=== PATIENT | female | born 1945 | race Caucasian/White ===

== ENCOUNTER → 2017-01-07 | Outpatient (REF) | payer MEDICARE, OTHER ==
[2017-01-08 00:38] LABS: MICROSCOPIC EXAM PERFORMED
[2017-01-08 00:39] LABS: CALCIUM OXALATE CRYSTALS,URINE MOD AMOUNT /hpf; HYALINE CAST, URINE NONE SEEN /lpf (0-1); SQUAMOUS EPITHELIAL CELL URINE MOD AMOUNT /hpf (SMALL AMT); WBC, URINE NONE SEEN /hpf (0-3)
[2017-01-08 00:40] LABS: BACTERIA, URINE NONE SEEN
== END ==
LOC: M LAB REF 16:30
PROVIDERS: ATTEND Nurse Practitioner Family
DX: R31.9 Hematuria, unspecified (principal)

== ENCOUNTER → 2020-04-19 | Outpatient (CLI) | payer MEDICARE, OTHER ==
[~2020-04-19] MED LIST: ALBU83IN INH; ALLE1DRO2 OP; CALC500C15 PO; CALCTAB89 PO; CETI10CH PO; EPIP0.3I2 IM; FLON1SPR; MELA10CA2 PO; MULTCAP PO; OMEP-218 PO; ROSU10TA6 PO; VAGI10TA PV; VITA-259 PO
== END ==
LOC: M LABSMTC 12:48
PROVIDERS: ATTEND Anesthesiology
DX: Z01.812 Encounter for preprocedural laboratory examination (principal); Z20.828 Contact with and (suspected) exposure to other viral communicable diseases
CPT/HCPCS: C9803; U0003

== ENCOUNTER 2020-04-24 11:06 | Day surgery (SDC) | payer MEDICARE, OTHER ==
[~2020-04-24] VITALS: Ht 149.9 cm; Wt 75.3 kg
[~2020-04-24 11:06] MED LIST changes: +NS 1,000 ML IV ONE
[2020-04-24] MEDS ORDERED: fentaNYL 100 MCG/2 ML INJECTION (J3010) As Ordered ONE (11:52)
[2020-04-24] MEDS ORDERED: LIDOCAINE 2% 100MG/5ML SDV (FOR ANES.) As Ordered ONE (11:53)
[2020-04-24] MEDS ORDERED: propofoL 500 MG/50 ML VIAL As Ordered ONE (11:56)
--- NOTE | 2020-04-24 12:32 | ROOR ---
Patient Name: Hedy Aguirre Procedure Date: 04/24/2020 12:15 PM Date of : 1945 Age: 74 Room: [facility] Gender: Female Note Status: Finalized Procedure: Total Colonoscopy to Cecum Indications: Heartburn Providers: Sandeep Garland MD Referring MD: Zulma Lu Requesting Provider: Medicines: Monitored Anesthesia Care Complications: No immediate complications. Procedure: Pre-Anesthesia Assessment: - The heart rate, respiratory rate, oxygen saturations, blood pressure, adequacy of pulmonary ventilation, and response to care were monitored throughout the procedure. The Endoscope was introduced through the mouth, and advanced to the second part of duodenum. The upper GI endoscopy was accomplished without difficulty. The patient tolerated the procedure well. Findings: The Z-line was variable and was found 35 cm from the incisors. Multiple biopsies were obtained with cold forceps for evaluation to rule out Tripp's Esophagus randomly at the gastroesophageal junction. No other significant abnormalities were identified in a careful examination of the stomach. The exam of the duodenum was otherwise normal. Impression: - Z-line variable, 35 cm from the incisors. - Multiple biopsies were obtained at the gastroesophageal junction. - The examination was otherwise normal. Recommendation: - Patient has a contact number available for emergencies. The signs and symptoms of potential delayed complications were discussed with the patient. Return to normal activities tomorrow. Written discharge instructions were provided to the patient. - Resume previous diet. - Discharge patient to home. - Follow an antireflux regimen. - Continue present medications. - Await pathology results. - Telephone GI clinic for pathology results in 1 week. - Return to referring physician. - The findings and recommendations were discussed with the patient. Sandeep Garland MD Sandeep Garland MD 04/24/2020 12:32:09 PM Electronically signed by Sandeep Garland MD Number of Addenda: 0 Note Initiated On: 04/24/2020 12:15 PM Estimated Blood Loss: Estimated blood loss: none.
--- NOTE | 2020-04-24 12:50 | ROOR ---
Patient Name: Hedy Aguirre Procedure Date: 04/24/2020 12:16 PM Date of : 1945 Age: 74 Room: [facility] Gender: Female Note Status: Finalized Procedure: Total Colonoscopy to Cecum Indications: High risk colon cancer surveillance: Personal history of colonic polyps, Last colonoscopy: 2014 Providers: Sandeep Garland MD Referring MD: Zulma Lu Requesting Provider: Medicines: Monitored Anesthesia Care Complications: No immediate complications. Procedure: Pre-Anesthesia Assessment: - The heart rate, respiratory rate, oxygen saturations, blood pressure, adequacy of pulmonary ventilation, and response to care were monitored throughout the procedure. The Colonoscope was introduced through the anus and advanced to the cecum, identified by appendiceal orifice and ileocecal valve. The colonoscopy was performed without difficulty. The patient tolerated the procedure well. The quality of the bowel preparation was good. Findings: The perianal and digital rectal examinations were normal. Non-bleeding internal hemorrhoids were found during retroflexion. The hemorrhoids were small and Grade I (internal hemorrhoids that do not prolapse). No other significant abnormalities were identified in a careful examination of the remainder of the colon. The exam was otherwise without abnormality on direct and retroflexion views. Impression: - Non-bleeding internal hemorrhoids. - The examination was otherwise normal on direct and retroflexion views. - No specimens collected. - The exam was otherwise normal to the cecum. Recommendation: - Patient has a contact number available for emergencies. The signs and symptoms of potential delayed complications were discussed with the patient. Return to normal activities tomorrow. Written discharge instructions were provided to the patient. - High fiber diet. - Discharge patient to home. - Continue present medications. - Repeat colonoscopy is not recommended due to current age (66 years or older) for surveillance. - Return to referring physician. - The findings and recommendations were discussed with the patient. Sandeep Garland MD Sandeep Garalnd MD 04/24/2020 12:50:25 PM Electronically signed by Sandeep Garland MD Number of Addenda: 0 Note Initiated On: 04/24/2020 12:16 PM Estimated Blood Loss: Estimated blood loss: none.
[2020-04-24 13:10] VITALS: BP 134/66
== END 2020-04-24 13:22 | disposition home or self-care (01) ==
LOC: M OPP 11:06
PROVIDERS: ATTEND Internal Medicine Gastroenterology
DX: Z12.11 Encounter for screening for malignant neoplasm of colon (principal); Z86.010 Personal history of colon polyps; K64.0 First degree hemorrhoids; K22.8 Other specified diseases of esophagus; R12 Heartburn; Z79.899 Other long term (current) drug therapy; Z91.030 Bee allergy status
CPT/HCPCS: 43239; 88305; G0105; J3010

== ENCOUNTER → 2020-07-27 | Outpatient (REF) | payer MEDICARE, OTHER ==
[~2020-07-27] MED LIST changes: -NS 1,000 ML IV ONE
[2020-07-27 17:40] LABS: BACTERIA, URINE AUTO NEGATIVE (NEGATIVE); RBC, URINE AUTO 4 /HPF (0-3); SQUAMOUS EPITHELIAL CELL UR AU 1 /HPF (0-6); WBC, URINE AUTO 3 /HPF (0-3)
== END ==
LOC: M LAB REF 16:13
PROVIDERS: ATTEND Registered Nurse
DX: N39.0 Urinary tract infection, site not specified (principal)

== ENCOUNTER → 2020-08-15 | Outpatient (REF) | payer MEDICARE, OTHER ==
[2020-08-15 18:15] LABS: AMORPHOUS SEDIMENT SMALL (NEGATIVE); APPEARANCE, URINE HAZY (CLEAR); BACTERIA, URINE AUTO NEGATIVE (NEGATIVE); BILIRUBIN, URINE AUTO NEGATIVE (NEGATIVE); BLOOD, URINE BLOOD NEGATIVE (NEGATIVE); COLOR, URINE YELLOW (YELLOW); GLUCOSE, URINE (UA) AUTO NEGATIVE (NEGATIVE); KETONE, URINE AUTO NEGATIVE (NEGATIVE); LEUKOCYTE ESTERASE, URINE AUTO TRACE (NEGATIVE); MUCUS, URINE SMALL (NEGATIVE); NITRITE, URINE AUTO NEGATIVE (NEGATIVE); PROTEIN, URINE AUTO NEGATIVE (NEGATIVE); RBC, URINE AUTO 6 /HPF (0-3); SPECIFIC GRAVITY URINE AUTO 1.016 (1.002-1.035); SQUAMOUS EPITHELIAL CELL UR AU 0 /HPF (0-6); UROBILINOGEN, URINE AUTO 0.2 mg/dL (0.0-2.0); WBC, URINE AUTO 3 /HPF (0-3)
[2020-08-17 13:41] LABS: CALCIUM LEVEL 10.3 MG/DL (8.8-10.2); CREATININE FOR GFR 0.98 MG/DL (0.55-1.30); GLOMERULAR FILTRATION RATE 59.4 (>39); POTASSIUM SERUM 4.2 MEQ/L (3.5-5.1)
== END ==
LOC: M PLALAB 16:37
PROVIDERS: ATTEND Nurse Practitioner Family
DX: R31.29 Other microscopic hematuria (principal)
CPT/HCPCS: 36415; 80048; 81001; 87086; 88108; G0463

== ENCOUNTER → 2020-08-22 | Outpatient (CLI) | payer MEDICARE, OTHER ==
[~2020-08-22] MED LIST changes: +ISOVUE-370 76% 100ML VIAL As Ordered ONE
--- NOTE | 2020-08-22 16:22 | REP ---
INDICATION: HEMTURIA. COMPARISON: CT 02/22/2015 TECHNIQUE: CT abdomen and pelvis performed without IV contrast. CT abdomen pelvis performed with IV contrast as well, following intravenous administration of 100 cc of Isovue 370. Sagittal, coronal and 3D MIP reconstruction images are performed. FINDINGS: Lung bases: Show only minor linear fibro atelectatic change in the inferior lingular segment and medial segment the right middle lobe at the anterior lung base. Liver: Homogeneous without discrete mass, cyst, hydronephrosis or adjacent ascites. Gallbladder: Couple of tiny calcified dependent stones. Spleen: Not enlarged, no focal lesion. Adrenals: Normal. Pancreas: Unremarkable.. Kidneys: There is a 5 mm hypodense focus laterally in the left kidney seen best on the delayed image not seen STIR standard and pre contrast images. It is too small to characterize. No definite solid mass, stone or hydronephrosis. No ureteral dilatation or stone. Small and large bowel: Colon and small bowel loops in the abdomen proper were unremarkable. Adenopathy: None. Appendix: Normal. Osseous structures: Visualized lower ribs and spine show no acute findings. There are some degenerative changes, age appropriate lower lumbar spine. No compression fracture.. Pelvis: Bladder only partially filled. No dilated distal ureter in the deep pelvis and no distal ureteral or bladder stone. No bladder wall thickening or mass. Uterus absent the vaginal cuff intact no pelvic free fluid. Distal left colon sigmoid and rectum all grossly unremarkable. No ventral or inguinal hernia, pelvic or inguinal lymphadenopathy. IMPRESSION: 1. Nonspecific 5 mm hypodensity lateral aspect interpolar region left kidney too small to characterize. It is not visible on precontrast or standard images only seen on delayed images. Careful follow-up the recommended. An ultrasound could be attempted but this is quite small. No renal, ureteral or bladder stone. 2. Solid organs in the upper abdomen otherwise unremarkable. The gallbladder shows a couple of tiny calcified stones in its dependent portion no other significant finding. <Electronically signed by Lm Monterroso > 08/22/20 [id number]
== END ==
LOC: M RAD 14:53
PROVIDERS: ATTEND Nurse Practitioner Family
DX: R31.29 Other microscopic hematuria (principal)
CPT/HCPCS: 74178; Q9967

== ENCOUNTER → 2020-08-31 | Outpatient (REF) | payer MEDICARE, OTHER ==
[~2020-08-31] MED LIST changes: -ISOVUE-370 76% 100ML VIAL As Ordered ONE
== END ==
LOC: M LAB REF 16:08
PROVIDERS: ATTEND Registered Nurse
DX: N28.9 Disorder of kidney and ureter, unspecified (principal)

== ENCOUNTER → 2021-02-19 | Outpatient (CLI) | payer MEDICARE, OTHER ==
--- NOTE | 2021-02-19 11:27 | REP ---
INDICATION: RENAL LESION COMPARISON: CT dated 08/22/2020 TECHNIQUE: Real time staton scale ultrasound examination using curved array transducer. FINDINGS: Bilateral kidneys are essentially normal in contour, size, echogenicity, and reniform shape. No hydronephrosis, nephrolithiasis, cystic or renal mass lesion identified. The small 5 mm lesion identified on recent CT may be too small to visualize by ultrasound. Right kidney measures 10.3 x 4.2 x 3.9 cm. Left kidney measures 9.6 x 4.2 x 5.1 cm. IMPRESSION: 1. Essentially normal renal ultrasound. 2. No obvious abnormality corresponding to questionable finding on recent CT identified. <Electronically signed by Suresh Whitmore > 02/19/21 [id number]
== END ==
LOC: M RAD 10:08
PROVIDERS: ATTEND Specialist
DX: N28.89 Other specified disorders of kidney and ureter (principal)

== ENCOUNTER → 2021-03-06 | Outpatient (REF) | payer MEDICARE, OTHER ==
[2021-03-06 19:11] LABS: BACTERIA, URINE AUTO 1+ (NEGATIVE); MUCUS, URINE SMALL (NEGATIVE); RBC, URINE AUTO 4 /HPF (0-3); SQUAMOUS EPITHELIAL CELL UR AU 4 /HPF (0-6); TRANSITIONAL EPITHELIAL AUTO <1 /HPF; WBC, URINE AUTO 14 /HPF (0-3)
== END ==
LOC: M SMT 17:43
PROVIDERS: ATTEND Specialist
DX: R31.29 Other microscopic hematuria (principal)
CPT/HCPCS: 81015; 87086; G0463

== ENCOUNTER → 2021-06-05 | Outpatient (CLI) | payer MEDICARE, OTHER ==
--- NOTE | 2021-06-05 15:23 | DEXAMM ---
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 COMPARISON: 03/23/2019 as well as other prior exams. TECHNIQUE: Bone density was measured using dual-energy x-ray absorptiometry (DEXA). FINDINGS: AP SPINE L1-L4 BMD 1.068 g/cm2 Young Adult T-Score -1.0 Age Matched Z-Score 0.7. LT FEMUR, TOTAL BMD 0.789 g/cm2 Young Adult T-Score -1.7 Age Matched Z-Score -0.1. LT NECK BMD 0.745 g/cm2 Young Adult T-Score -2.1 Age Matched Z-Score -0.3. RT FEMUR, TOTAL BMD 0.829 g/cm2 Young Adult T-Score -1.4 Age Matched Z-Score 0.2. RT NECK BMD 0.738 g/cm2 Young Adult T-Score -2.2 Age Matched Z-Score -0.3. IMPRESSION: There is low bone density of the spine. There is low bone density of the left hip. There is low bone density of the right hip. The density of the spine has increased 11.3% since the initial exam on 03/25/2006. The density of the spine increased 0.4% since most recent exam on 03/23/2019. The density of the left hip has increased 1.9% since initial exam on 03/25/2006. The density of the left hip has increased 0.3% since most recent exam on 03/23/2019. The density of the right hip has increased 1.3% since the initial exam on 03/25/2006. The density of the right hip has increased 1.3% since the most recent exam on 03/23/2019. FOLLOW-UP: Recommendation for the next bone density exam: 2 years. <Electronically signed by Adrien Rosales > 06/05/21 [id number]
== END ==
LOC: M WHC 14:17
PROVIDERS: ATTEND Internal Medicine
DX: M81.0 Age-related osteoporosis without current pathological fracture (principal); M85.851 Other specified disorders of bone density and structure, right thigh; M85.852 Other specified disorders of bone density and structure, left thigh; M85.88 Other specified disorders of bone density and structure, other site

== ENCOUNTER → 2021-12-04 | Outpatient (CLI) | payer MEDICARE, OTHER ==
[~2021-12-04] MED LIST changes: +ALBU2.5V10 INH; -ALBU83IN INH; +OMEP-173 PO; -OMEP-218 PO
== END ==
LOC: M RAD 15:43
PROVIDERS: ATTEND Internal Medicine
DX: M25.552 Pain in left hip (principal); M16.12 Unilateral primary osteoarthritis, left hip

== ENCOUNTER → 2022-06-03 | Outpatient (REF) | payer MEDICARE, OTHER ==
[2022-06-11 10:34] LABS: TOTAL PROTEIN 7.1 GM/DL (6.4-8.2)
[2022-06-11 11:19] LABS: ALBUMIN 4.44 GM/DL (3.29-5.55); ALBUMIN % 62.5 % (55.8-66.1); ALPHA-1-GLOBULIN % 3.9 % (2.9-4.9); ALPHA-1-GLOBULINS 0.28 GM/DL (0.17-0.41); ALPHA-2-GLOBULINS 0.81 GM/DL (0.42-0.99); ALPHA-2-GLOBULINS % 11.4 % (7.1-11.8); BETA-1-GLOBULINS 0.43 GM/DL (0.28-0.60); BETA-1-GLOBULINS % 6.1 % (4.7-7.2); BETA-2-GLOBULINS 0.34 GM/DL (0.19-0.55); BETA-2-GLOBULINS % 4.8 % (3.2-6.5); GAMMA GLOBULIN % 11.3 % (11.1-18.8)
[2022-06-11 12:04] LABS: IMMUNOTYPING SERUM IGM ABNORMAL (NORMAL); IMMUNOTYPING SERUM KAPPA ABNORMAL (NORMAL)
== END ==
LOC: M LAB REF 16:12
PROVIDERS: ATTEND Internal Medicine
DX: N20.0 Calculus of kidney (principal)

== ENCOUNTER → 2022-06-05 | Outpatient (CLI) | payer MEDICARE, OTHER | LOC: M RAD 14:15 | PROVIDERS: ATTEND Internal Medicine | DX: R05.9 Cough, unspecified (principal) ==

== ENCOUNTER → 2022-06-17 | Outpatient (REF) | payer MEDICARE, OTHER ==
[2022-06-17 14:48] LABS: IMMUNOGLOBULIN A 189.1 MG/DL (40-350); IMMUNOGLOBULIN M 198.8 MG/DL (50-300)
== END ==
LOC: M LAB REF 12:16
PROVIDERS: ATTEND Internal Medicine
DX: D47.2 Monoclonal gammopathy (principal)

== ENCOUNTER → 2022-07-19 | Outpatient (CLI) | payer MEDICARE, OTHER ==
[~2022-07-19] MED LIST changes: +CRES10TA PO; +MULT1TAB55 PO
== END ==
LOC: M RAD 12:42
PROVIDERS: ATTEND Internal Medicine Medical Oncology
DX: D47.2 Monoclonal gammopathy (principal)

== ENCOUNTER → 2023-06-18 | Outpatient (CLI) | payer MEDICARE, OTHER | LOC: M WHC 12:36 | PROVIDERS: ATTEND Internal Medicine | DX: M81.0 Age-related osteoporosis without current pathological fracture (principal) ==

== ENCOUNTER 2024-10-16 11:32 | Emergency (ER) | payer MEDICARE, OTHER ==
[~2024-10-16] VITALS: Ht 149.9 cm; Wt 79.2 kg
[~2024-10-16 11:32] MED LIST changes: -ROSU10TA6 PO; +ROSU10TA61 PO
[2024-10-16 12:21] LABS: BASO # 0.1 10^3/uL (0.0-0.2); BASO % 0.4 % (0.0-1.0); EOS # 0.1 10^3/uL (0.0-0.5); EOS % 0.5 % (0.0-3.0); HEMATOCRIT 41.8 % (36.0-47.0); HEMOGLOBIN 13.7 g/dl (12.0-15.5); LYMPH # 2.1 10^3/uL (1.5-5.0); LYMPH % 18.9 % (24.0-44.0); MEAN CORPUSCULAR HEMOGLOBIN 28.2 pg (27.0-33.0); MEAN CORPUSCULAR HGB CONC 32.8 g/dl (32.0-36.5); MEAN CORPUSCULAR VOLUME 86.2 fl (80.0-96.0); MONO # 1.2 10^3/uL (0.0-0.8); MONO % 10.6 % (2.0-8.0); NEUTROPHILS # 7.7 10^3/uL (1.5-8.5); NEUTROPHILS % 69.2 % (36.0-66.0); PLATELET COUNT, AUTOMATED 271 10^3/uL (150-450); RED BLOOD COUNT 4.85 10^6/uL (4.00-5.40); WHITE BLOOD COUNT 11.1 10^3/uL (4.0-10.0)
[2024-10-16 12:49] LABS: LIPASE 46 U/L (12-53)
[2024-10-16 12:51] LABS: ALBUMIN 3.8 G/DL (3.2-5.2); ALKALINE PHOSPHATASE 60 U/L (35-104); ALT/SGPT 17 U/L (7.0-40); AST/SGOT 14 U/L (<34); BILIRUBIN,DIRECT < 0.1 MG/DL (<0.4); BILIRUBIN,TOTAL 0.4 MG/DL (0.3-1.2); BLOOD UREA NITROGEN 20 MG/DL (9-23); CALCIUM LEVEL 9.7 MG/DL (8.3-10.6); CARBON DIOXIDE LEVEL 27 MMOL/L (20-31); CHLORIDE LEVEL 105 MMOL/L (98-107); CK-MB VALUE MASS < 1.0 NG/ML (<3.6); CPK CREATINE PHOSPHOKINASE 37 U/L (34-145); CREATININE FOR GFR 0.84 MG/DL (0.55-1.30); GLOMERULAR FILTRATION RATE 71.5 (>39); GLUCOSE, FASTING 99 MG/DL (74-106); POTASSIUM SERUM 4.4 MMOL/L (3.5-5.1); SODIUM LEVEL 140 MMOL/L (136-145); TOTAL PROTEIN 7.1 G/DL (5.7-8.2)
[2024-10-16 12:53] LABS: FREE T4 0.99 NG/DL (0.89-1.76); THYROID STIMULATING HORMONE 1.869 uIU/ML (0.55-4.78)
[2024-10-16] MEDS: KETOROLAC 30 MG/ML 1ML VIAL IV ONE (13:25)
[2024-10-16] MEDS ORDERED: ISOVUE-370 76% 100ML VIAL As Ordered ONE (13:45)
[2024-10-16 14:26] LABS: CK-MB VALUE MASS < 1.0 NG/ML (<3.6); CPK CREATINE PHOSPHOKINASE 68 U/L (34-145); MB/CK RELATIVE INDEX 1.47 (< OR =4)
[2024-10-16] MEDS: APIXABAN 5 MG TAB (ELIQUIS) PO ONE ×2 (15:48→18:43)
[2024-10-16] MEDS ORDERED: ELIQ5TAB PO (17:31)
[2024-10-16 17:45] VITALS: BP 144/67; TEMP 99; O2SAT 97
== END 2024-10-16 17:50 | disposition home or self-care (01) ==
LOC: M ED 11:32
DX: I26.99 Other pulmonary embolism without acute cor pulmonale (principal); K80.20 Calculus of gallbladder without cholecystitis without obstruction; E78.5 Hyperlipidemia, unspecified; K21.9 Gastro-esophageal reflux disease without esophagitis; J45.909 Unspecified asthma, uncomplicated; F41.9 Anxiety disorder, unspecified; D47.2 Monoclonal gammopathy; Z85.828 Personal history of other malignant neoplasm of skin; Z87.442 Personal history of urinary calculi; Z79.899 Other long term (current) drug therapy; Z91.030 Bee allergy status
CPT/HCPCS: 71045; 71275; 74177; 76705; 80047; 80048; 80076; 82550; 82553; 83690; 83880; 84439; 84443; 84484; 85025; 93005; 93041; 93970; 94760; 96374; 99285; J1885; Q9967

== ENCOUNTER → 2024-11-12 | Outpatient (REF) | payer MEDICARE, OTHER ==
[~2024-11-12] MED LIST changes: +CVS10CAP8 PO; +ELIQ5TAB PO; -MELA10CA2 PO
== END ==
LOC: M LAB REF 17:27
PROVIDERS: ATTEND Internal Medicine
DX: M19.90 Unspecified osteoarthritis, unspecified site (principal); M25.561 Pain in right knee

== ENCOUNTER → 2025-06-13 | Outpatient (REF) | payer MEDICARE, OTHER ==
[~2025-06-13] MED LIST changes: -ROSU10TA61 PO; +ROSU10TA90 PO
[2025-06-13 15:29] LABS: APPEARANCE, URINE CLEAR (CLEAR); BACTERIA, URINE AUTO 2+ (NEGATIVE); BILIRUBIN, URINE AUTO NEGATIVE (NEGATIVE); BLOOD, URINE BLOOD 1+ (NEGATIVE); GLUCOSE, URINE (UA) AUTO NEGATIVE (NEGATIVE); KETONE, URINE AUTO NEGATIVE (NEGATIVE); LEUKOCYTE ESTERASE, URINE AUTO TRACE (NEGATIVE); MUCUS, URINE SMALL (NEGATIVE); NITRITE, URINE AUTO NEGATIVE (NEGATIVE); PROTEIN, URINE AUTO NEGATIVE (NEGATIVE); RBC, URINE AUTO 3 /HPF (0-3); SPECIFIC GRAVITY URINE AUTO 1.008 (1.002-1.035); SQUAMOUS EPITHELIAL CELL UR AU 2 /HPF (0-6); UROBILINOGEN, URINE AUTO 0.2 mg/dL (0.0-2.0); WBC, URINE AUTO 3 /HPF (0-3)
== END ==
LOC: M LAB REF 14:22
PROVIDERS: ATTEND Internal Medicine
DX: R31.9 Hematuria, unspecified (principal)